=== PATIENT | male | born 1960 | race Caucasian/White ===

== ENCOUNTER 2019-08-11 10:29 | Emergency (ER) | payer OTHER ==
[~2019-08-11] VITALS: Ht 175.3 cm; Wt 111.1 kg
[2019-08-11] MEDS ORDERED: ASA81 MG (10:57)
[2019-08-11] MEDS ORDERED: SINGULAIR10 MG (10:57)
[2019-08-11] MEDS ORDERED: FORTAMET500 MG (10:57)
[2019-08-11] MEDS ORDERED: ACUPRIL (10:57)
== END 2019-08-11 20:20 | disposition home or self-care (01) ==
LOC: ER 10:29
DX: K58.9 Irritable bowel syndrome, unspecified (principal)